=== PATIENT | male | born 1950 | race Caucasian/White ===

== ENCOUNTER 2018-06-28 09:57 | Inpatient (IN) | payer MEDICARE ==
[2018-06-28] VITALS (13 sets, daily range): BP systolic 142–164; BP diastolic 74–93
[~2018-06-28] VITALS: Ht 182.9 cm; Wt 109.9 kg
--- NOTE | 2018-06-28 10:16 | NUR ---
left for Dr. Ni via answering service. He is in surgery and will be calling back when he is avaiable.
[2018-06-28 10:35] LABS: BASOPHILS % (AUTO) 0.7 % (0-1); EOSINOPHILS # (AUTO) 0.2 X10'3 (0-0.9); HEMATOCRIT 44.3 % (42.0-52.0); HEMOGLOBIN 14.2 g/dl (14.0-17.9); LYMPHOCYTES # (AUTO) 0.8 X10'3 (1.1-4.8); LYMPHOCYTES % (AUTO) 12.9 % (21-51); MEAN CORPUSCULAR HEMOGLOBIN 25.5 PG (27.0-31.0); MEAN CORPUSCULAR HGB CONC 32.1 g/dL (33.0-36.5); MEAN CORPUSCULAR VOLUME 79.3 FL (78-98); MEAN PLATELET VOLUME 8.7 FL (7.4-10.4); MONOCYTES # (AUTO) 0.5 X10'3 (0-0.9); MONOCYTES % (AUTO) 7.8 % (2-12); NEUTROPHILS # (AUTO) 4.6 X10'3 (1.8-7.7); NEUTROPHILS % (AUTO) 75.6 % (42-75); PLATELET COUNT 170 X10'3 (140-440); RED BLOOD COUNT 5.58 X10'6 (4.70-6.10); RED CELL DISTRIBUTION WIDTH 15.9 % (11.5-14.5); WHITE BLOOD COUNT 6.1 X10'3 (4.5-11.0)
[2018-06-28 10:48] LABS: INR 1.1 INR; PARTIAL THROMBOPLASTIN TIME 27 SECONDS (22-32); PROTHROMBIN TIME 11.4 SECONDS (9.0-12.0)
[2018-06-28 11:06] LABS: ALANINE AMINOTRANSFERASE 27 U/L (12-78); ALBUMIN 3.6 G/DL (3.4-5.0); ALBUMIN/GLOBULIN RATIO 1.3 (1.1-1.5); ALKALINE PHOSPHATASE 48 IU/L (46-116); ANION GAP 9 (8-16); ASPARTATE AMINO TRANSFERASE 15 U/L (10-37); BILIRUBIN,TOTAL 0.7 MG/DL (0.1-1.0); BLOOD UREA NITROGEN 14 MG/DL (7-18); BUN/CREATININE RATIO 13.2 (5.4-32.0); CALCIUM 8.7 MG/DL (8.5-10.1); CHLORIDE 104 MMOL/L (99-107); CREATININE 1.06 MG/DL (0.60-1.10); GLUCOSE 123 MG/DL (70-104); MAGNESIUM 1.7 MG/DL (1.5-2.4); POTASSIUM 4.2 MMOL/L (3.5-5.1); SODIUM 138 MMOL/L (135-145); TOTAL CARBON DIOXIDE 24.8 MMOL/L (24-32); TOTAL PROTEIN 6.4 G/DL (6.4-8.2); eGFR 69 ML/MIN
[2018-06-28] MEDS ORDERED: ondansetron/PF 4mg/2ml inj IV PRN (12:30)
[2018-06-28] MEDS ORDERED: magnesium hydroxide 30ml (MOM) UD suspension PO PRN (12:30)
[2018-06-28] MEDS ORDERED: magnesium Cl slow-release 64mg tablet PO PRN (12:30)
[2018-06-28] MEDS ORDERED: potassium Cl 40MEQ/NS 500ml 500 ML IV PRN ×2 (12:30)
[2018-06-28] MEDS ORDERED: magnesium 2GM in 50ml NS 50 ML IV PRN (12:30)
[2018-06-28] MEDS ORDERED: magnesium 4gm in 100ml NS 100 ML IV PRN (12:30)
[2018-06-28] MEDS ORDERED: acetaminophen 325mg tablet PO PRN ×2 (12:30)
[2018-06-28] MEDS ORDERED: potassium Cl 20 mEq SR tablet PO PRN ×2 (12:30)
[2018-06-28] MEDS ORDERED: ceFAZolin inj. 2,000 MG in dextrose 5%-water 50ml 50 ML IV ONE (12:55)
[2018-06-28] MEDS ORDERED: ceFAZolin 2gm in dextrose, iso 100 ML IV ONE (13:00)
--- NOTE | 2018-06-28 13:00 | NUR ---
Per Dori Ortega, pt will be going in to surgery for his pace maker between 1400/1430, with Dr. Ni.
--- NOTE | 2018-06-28 13:03 | NUR ---
correction to above time:
[2018-06-28] MEDS ORDERED: ASPI-611 PO (13:32)
[2018-06-28] MEDS ORDERED: OMEP20TA23 PO (13:32)
[2018-06-28] MEDS ORDERED: TEST5GEL2 TOP (13:32)
[2018-06-28] MEDS ORDERED: LEVO125T PO (13:32)
[2018-06-28] MEDS ORDERED: FLEC50TA PO (13:32)
--- NOTE | 2018-06-28 13:35 | NUR ---
I HAVE RECEIVED REPORT FROM HERMES RODRIGEZ IN THE ED. HAD THE OPPORTUNITY TO ASK QUESTIONS AND ADDRESS CONCERNS. AWAITING PATIENT ARRIVAL TO ACCE UNIT ROOM 309.
--- NOTE | 2018-06-28 14:00 | NUR ---
PATIENT ARRIVED TO ACCE UNIT VIA WC IN STABLE CONDITION. ORIENTATED TO ROOM AND ROUTINE. PLACED ON MONITOR AND VSS BP 142/86, HR 73, RR 12, O2 97% RA. PATIENT DENIES PAIN OR COMPLAINTS AT THIS TIME. PATIENT PREPPED FOR PPM PLACEMENT, REMINDED ABOUT NPO STATUS. WILL CONTINUE TO MONITOR AND AWAIT FURTHER ORDERS.
--- NOTE | 2018-06-28 14:53 | NUR ---
CALLED DR. SCHULZ TO INFORM THAT PRE-OP ANCEF WAS GIVEN TOO EARLY. NEW ORDER RECEIVED: ANCEF 1GM TO BE AVAILABLE DURING THE PROCEDURE.
--- NOTE | 2018-06-28 15:13 | NUR ---
PATIENT STILL IN THE ED AT THIS TIME. WILL ASSESS NEURO FUNCTION WHEN PATIENT ARRIVES TO UNIT. Addendum: 06/28/18 at 1514 by Lupe Diaz RN Amended: Links added.
--- NOTE | 2018-06-28 15:24 | NUR ---
PATIENT CHARMAINE DOWN TO 28. PATIENT ASSESSED, NO LOC, PATIENT DID STATE THAT HE FELT LIKE HE WAS GOING TO "PASS OUT". PATIENT STATED "I FELT IT BEFORE THE MASTER CHEF ALARMED". PATIENT HR RECOVERED WITHIN SECONDS TO NSR IN THE 70s. PATIENT HAS BEEN PREPPED AND CONSENTED FOR PPM PLACEMENT WITH DR. SCHULZ AT 1600.
[2018-06-28] MEDS ORDERED: ceFAZolin 1000mg inj ONE ×2 (15:39→15:59)
[2018-06-28] MEDS ORDERED: midazolam 2 mg/2 ml injection ONE ×3 (15:39→16:34)
[2018-06-28] MEDS ORDERED: lidocaine 1%/epinephrine 1:100,000 injection 50ml vial ONE (15:39)
[2018-06-28] MEDS ORDERED: fentaNYL/PF 50MCG/1 ML 2ML syringe ONE ×2 (15:39→16:14)
--- NOTE | 2018-06-28 15:40 | NUR ---
PATIENT CHARMAINE DOWN TO 40s. PATIENT STATED "I COULD FEEL IT" [id number] CERTIFIED ORTHOTIST PRACTICE MANAGER CALLED TO INFORM ON WAY TO NUCLEAR EQUIPMENT RESEARCH ENGINEER PATIENT
--- NOTE | 2018-06-28 15:55 | NUR ---
PATIENT OFF UNIT TO STOCK CONTROL CLERK
[2018-06-28] MEDS ORDERED: ceFAZolin 1GM/D5W- ADD-VANTAGE 50 ML IV ONE ×2 (15:59→16:00)
[2018-06-28] MEDS ORDERED: HYDROmorphone 1 mg/ml syringe ONE (16:40)
--- NOTE | 2018-06-28 17:15 | NUR ---
Patient in room MED 309. I have received report from HERMES BORRERO IN SPORTS INTERN and had the opportunity to ask questions and assume patient care. AWAITING PATIENT ARRIVAL TO ACCE UNIT ROOM 309
--- NOTE | 2018-06-28 17:20 | NUR ---
PATIENT BACK FROM BOTTLE TESTER S/P PPM PLACEMENT. C/O SORENESS TO INCISION SITE. WILL CONTINUE TO MONITOR. VASCULAR AT BEDSIDE FOR CAROTID US
[2018-06-28] MEDS ORDERED: HYDROcodone/acetaminophen 10/325mg tab PO PRN (17:45)
[2018-06-28] MEDS ORDERED: HYDROcodone/acetaminophen 5mg/325mg tablet PO PRN (17:45)
[2018-06-28] MEDS ORDERED: LORazepam 1 MG tablet PO PRN (17:45)
--- NOTE | 2018-06-28 18:07 | NUR ---
Problems reprioritized. Patient report given, questions answered & plan of care reviewed with HERMES NORMAN.
[2018-06-28] MEDS: heparin, porcine 5000 units/ml vial SQ SCH (19:25)
[2018-06-28] MEDS ORDERED: flecainide 50mg tablet PO SCH (20:00)
[2018-06-28] MEDS: mag hydrox/Alum hydrox/simeth 30ml oral suspension PO PRN ×2 (20:38→23:20)
--- NOTE | 2018-06-28 20:58 | NUR ---
NOTIFIED DR GARRETT REGARDING PT'S HYPERTENSION 150'S/80'S TO 160'S/90'S; PT'S REPORTS HOME BP AVERAGES AT 140'S/70'S. NO NEW ORDERS RECEIVED.
[2018-06-28] MEDS ORDERED: temazepam 15mg capsule PO PRN (21:00)
--- NOTE | 2018-06-28 21:01 | NUR ---
PT COMPLAINED OF CHEST PAIN TO UPPER NECK; STAT EKG ORDERED AND PERFORMED; DR GARRETT AT BEDSIDE AND REVIEWED EKG AND PREVIOUS EKG. NO NEW ORDERS WERE RECEIVED.
[2018-06-28] MEDS: ceFAZolin 1GM/D5W- ADD-VANTAGE 50 ML IV SCH (23:21)
[2018-06-29 02:00] VITALS: BP 143/84
[2018-06-29] MEDS: mag hydrox/Alum hydrox/simeth 30ml oral suspension PO PRN (03:30)
[2018-06-29 06:00] VITALS: BP 152/94
[2018-06-29 06:12] LABS: ALANINE AMINOTRANSFERASE 26 U/L (12-78); ALBUMIN 3.5 G/DL (3.4-5.0); ALBUMIN/GLOBULIN RATIO 1.3 (1.1-1.5); ALKALINE PHOSPHATASE 39 IU/L (46-116); ANION GAP 5 (8-16); ASPARTATE AMINO TRANSFERASE 16 U/L (10-37); BASOPHILS % (AUTO) 0.3 % (0-1); BLOOD UREA NITROGEN 12 MG/DL (7-18); BUN/CREATININE RATIO 10.7 (5.4-32.0); CALCIUM 8.7 MG/DL (8.5-10.1); CHLORIDE 104 MMOL/L (99-107); CHOL/HDL RATIO 3.7 (0.00-4.99); CHOLESTEROL 145 MG/DL (0-200); CREATININE 1.12 MG/DL (0.60-1.10); EOSINOPHILS # (AUTO) 0.1 X10'3 (0-0.9); EOSINOPHILS % (AUTO) 1.3 % (0-6); GLUCOSE 110 MG/DL (70-104); HDL CHOLESTEROL 39 MG/DL (35-60); HEMATOCRIT 41.3 % (42.0-52.0); HEMOGLOBIN 13.5 g/dl (14.0-17.9); LDL CHOLESTEROL 94 MG/DL (50-100); LYMPHOCYTES # (AUTO) 1.1 X10'3 (1.1-4.8); MAGNESIUM 1.9 MG/DL (1.5-2.4); MEAN CORPUSCULAR HEMOGLOBIN 26.2 PG (27.0-31.0); MEAN CORPUSCULAR HGB CONC 32.8 g/dL (33.0-36.5); MEAN CORPUSCULAR VOLUME 79.8 FL (78-98); MEAN PLATELET VOLUME 8.9 FL (7.4-10.4); MONOCYTES # (AUTO) 0.9 X10'3 (0-0.9); MONOCYTES % (AUTO) 9.2 % (2-12); NEUTROPHILS # (AUTO) 7.2 X10'3 (1.8-7.7); NEUTROPHILS % (AUTO) 77.2 % (42-75); PLATELET COUNT 176 X10'3 (140-440); RED BLOOD COUNT 5.17 X10'6 (4.70-6.10); RED CELL DISTRIBUTION WIDTH 16.2 % (11.5-14.5); SODIUM 140 MMOL/L (135-145); TOTAL CARBON DIOXIDE 31.1 MMOL/L (24-32); TOTAL PROTEIN 6.2 G/DL (6.4-8.2); TRIGLYCERIDES 94 MG/DL (20-135); WHITE BLOOD COUNT 9.4 X10'3 (4.5-11.0); eGFR 65 ML/MIN
--- NOTE | 2018-06-29 06:40 | NUR ---
Patient in room MED 309. I have received report from HERMES NORMAN and had the opportunity to ask questions and assume patient care.
--- NOTE | 2018-06-29 06:40 | NUR ---
MEREDITH TYLER NP AT THE BEDSIDE. PATIENT WILL BE DISCHARGED. MEREDITH TO TALK WITH DR. AGOSTO ABOUT DISCHARGE ROUTINE. WILL CONTINUE TO MONITOR
--- NOTE | 2018-06-29 06:45 | NUR ---
PATIENT HAS LEFT ARM SLING IMMOBILIZER D/T PPM PLACEMENT YESTERDAY. Addendum: 06/29/18 at 0646 by Lupe Diaz RN Amended: Links added.
[2018-06-29] MEDS ORDERED: CEPH-572 PO (06:47)
[2018-06-29] MEDS ORDERED: SOTA80TA73 PO (06:47)
--- NOTE | 2018-06-29 06:52 | NUR ---
Patient in room MED 309. I have received report from Kayla MIRAZ and had the opportunity to ask questions and assume patient care. Addendum: 06/29/18 at 0652 by Yina Shahid RN Wrong patient.
--- NOTE | 2018-06-29 06:57 | NUR ---
BRUISING NOTED AROUND INSERTION SITE. STABLE. NO HEMATOMA OR BLEEDING NOTED. WILL CONTINUE TO MONITOR Addendum: 06/29/18 at 0700 by Lupe Diaz RN Amended: Links added.
[2018-06-29] MEDS ORDERED: levoTHYROXINE 125mcg tablet PO SCH (07:00)
--- NOTE | 2018-06-29 07:00 | NUR ---
PATIENT WILL MAKE OWN FOLLW-UP APPT WITH DR. SCHULZ Addendum: 06/29/18 at 0701 by Lupe Diaz RN Amended: Links added.
--- NOTE | 2018-06-29 07:19 | NUR ---
CALLED COURTNEY, [employer] REP, TO INQUIRE ABOUT PPM INTERROGATION THIS AM. COURTNEY INFORM THAT A REP SHOULD BE THERE IN A FEW TO INTERROGATE. STATED HE WOULD CALL THE REP AND MAKE SURE PATIENT IS ON THE SCHEDULE FOR TODAY.
[2018-06-29] MEDS ORDERED: pantoprazole 40mg Tablet.DR PO SCH (07:30)
[2018-06-29] MEDS: ceFAZolin 1GM/D5W- ADD-VANTAGE 50 ML IV SCH (07:32)
[2018-06-29] MEDS: heparin, porcine 5000 units/ml vial SQ SCH (07:33)
--- NOTE | 2018-06-29 07:35 | NUR ---
[employer] REP AT BEDSIDE. PPM INTERROGATED, REPORT GIVEN TO DR. SCHULZ AND MEREDITH TYLER APPLIED COMPUTER SCIENCE PROFESSOR
[2018-06-29] MEDS ORDERED: aspirin 81mg tablet.DR PO SCH (08:00)
[2018-06-29] MEDS ORDERED: sotalol 40mg tablet PO SCH (08:00)
[2018-06-29] MEDS ORDERED: K and/or MAG REPLACEMENT MC SCH (08:00)
--- NOTE | 2018-06-29 09:22 | NUR ---
PATIENT WILL FOLLOWUP FOR PNEUMOCOCCAL VACCINE OUTPATIENT.
--- NOTE | 2018-06-29 09:38 | NUR ---
DISCHARGE INSTRUCTIONS GIVEN TO PATIENT. PATIENT VERBALIZED UNDERSTANDING. PIV X2 REMOVED, TIP INTACT, HEMOSTASIS ACHIEVED. NEW PRESCRIPTIONS DELIVERED BY TADEO'S BEDSIDE. PATIENT AWAITING FOR RIDE HOME.
[2018-06-29] MEDS ORDERED: pneumococcal 23-VAL P-sac vacc 25 mcg/0.5ml vial IMVAC ONE (10:00)
== END 2018-06-29 09:45 | disposition home or self-care (01) | DRG 242 ==
LOC: ER 09:58 → ED HOLD 12:28 → MED 3N 14:12
PROVIDERS: ADMIT Internal Medicine; ATTEND Internal Medicine
PROC: 0JH606Z Insertion of Pacemaker, Dual Chamber into Chest Subcutaneous Tissue and Fascia, Open Approach (ICD-10-PCS; principal; 2018-06-28)
PROC: 02HK3JZ Insertion of Pacemaker Lead into Right Ventricle, Percutaneous Approach (ICD-10-PCS; 2018-06-28)
PROC: 02H63JZ Insertion of Pacemaker Lead into Right Atrium, Percutaneous Approach (ICD-10-PCS; 2018-06-28)
DX: I44.2 Atrioventricular block, complete (principal); I46.9 Cardiac arrest, cause unspecified; I48.0 Paroxysmal atrial fibrillation; G47.33 Obstructive sleep apnea (adult) (pediatric); E03.9 Hypothyroidism, unspecified; I48.2 Chronic atrial fibrillation; K21.9 Gastro-esophageal reflux disease without esophagitis; Z79.890 Hormone replacement therapy; Z79.899 Other long term (current) drug therapy; Z28.21 Immunization not carried out because of patient refusal; Z79.82 Long term (current) use of aspirin
CPT/HCPCS: 33208; 36415; 71045; 80053; 80061; 83735; 83880; 84443; 84484; 85025; 85610; 85730; 87070; 93005; 93306; 93880; 99152; 99153; 99285; A4565; A4620; A6449; C1785; C1898; G0378; J0690; J1170; J1644; J2250; J3010; J3490